=== PATIENT | female | born 1990 | race Caucasian/White ===

== ENCOUNTER → 2020-11-19 | Outpatient (REF) | payer OTHER | LOC: M SFHCWAGY 13:23 | PROVIDERS: ATTEND Nurse Practitioner Women's Health | DX: Z12.4 Encounter for screening for malignant neoplasm of cervix (principal); Z01.419 Encounter for gynecological examination (general) (routine) without abnormal findings ==

== ENCOUNTER 2021-09-07 16:14 | Emergency (ER) | payer OTHER ==
[~2021-09-07] VITALS: Ht 177.8 cm; Wt 86.6 kg
[2021-09-07] MEDS ORDERED: NS 1,000 ML IV ONE (17:20)
[2021-09-07] MEDS ORDERED: ONDANSETRON 4MG/2ML VIAL IV ONE (17:20)
[2021-09-07 18:18] LABS: BASO % 0.5 % (0.0-1.0); EOS # 0.1 10^3/uL (0.0-0.5); EOS % 1.2 % (0.0-3.0); HEMATOCRIT 39.2 % (36.0-47.0); LYMPH % 26.7 % (24.0-44.0); MEAN CORPUSCULAR HEMOGLOBIN 30.3 pg (27.0-33.0); MEAN CORPUSCULAR HGB CONC 33.2 g/dl (32.0-36.5); MEAN CORPUSCULAR VOLUME 91.4 fl (80.0-96.0); MONO # 0.9 10^3/uL (0.0-0.8); MONO % 11.9 % (2.0-8.0); NEUTROPHILS # 4.3 10^3/uL (1.5-8.5); NEUTROPHILS % 59.4 % (36.0-66.0); PLATELET COUNT, AUTOMATED 263 10^3/uL (150-450); RED BLOOD COUNT 4.29 10^6/uL (4.00-5.40); WHITE BLOOD COUNT 7.3 10^3/uL (4.0-10.0)
[2021-09-07 18:39] LABS: ALBUMIN 3.5 GM/DL (3.2-5.2); ALT/SGPT 16 U/L (12-78); BILIRUBIN,DIRECT 0.1 MG/DL (0.0-0.2); BILIRUBIN,TOTAL 0.2 MG/DL (0.2-1.0); BLOOD UREA NITROGEN 10 MG/DL (7-18); C REACTIVE PROTEIN QUANTITATIV 3.05 MG/DL (0.00-0.30); CALCIUM LEVEL 8.6 MG/DL (8.5-10.1); CARBON DIOXIDE LEVEL 29 MEQ/L (21-32); CHLORIDE LEVEL 103 MEQ/L (98-107); CREATININE FOR GFR 0.67 MG/DL (0.55-1.30); GLOMERULAR FILTRATION RATE > 60.0 (>60); GLUCOSE, FASTING 93 MG/DL (70-100); LIPASE 87 U/L (73-393); POTASSIUM SERUM 3.5 MEQ/L (3.5-5.1); SODIUM LEVEL 137 MEQ/L (136-145); TOTAL PROTEIN 7.5 GM/DL (6.4-8.2)
[2021-09-07 18:40] LABS: ERYTHROCYTE SEDIMENTATION RATE 29 mm/hr (0-20)
[2021-09-07] MEDS ORDERED: ISOVUE-370 76% 100ML VIAL As Ordered ONE (18:50)
[2021-09-07 19:17] VITALS: BP 116/68
== END 2021-09-07 20:00 | disposition home or self-care (01) ==
LOC: M ED 16:14
DX: A02.0 Salmonella enteritis (principal); Z88.5 Allergy status to narcotic agent
CPT/HCPCS: 74177; 80048; 80076; 81001; 83605; 83690; 84702; 85025; 85652; 86140; 87086; 87507; 96361; 96374; 99284; J2405; Q9967

== ENCOUNTER → 2021-11-01 | Outpatient (REF) | payer OTHER | LOC: M LAB REF 19:44 | PROVIDERS: ATTEND Internal Medicine | DX: J02.9 Acute pharyngitis, unspecified (principal) ==

== ENCOUNTER 2023-02-12 14:51 | Emergency (ER) | payer OTHER ==
[~2023-02-12] VITALS: Ht 177.8 cm; Wt 84.1 kg
[2023-02-12 19:14] VITALS: BP 127/74; TEMP 99.2; O2SAT 100
== END 2023-02-12 19:33 | disposition home or self-care (01) ==
LOC: M ED 19:05
DX: S80.02XA Contusion of left knee, initial encounter (principal); S06.0X0A Concussion without loss of consciousness, initial encounter; S13.4XXA Sprain of ligaments of cervical spine, initial encounter; V49.40XA Driver injured in collision with unspecified motor vehicles in traffic accident, initial encounter; Y92.410 Unspecified street and highway as the place of occurrence of the external cause; Z88.5 Allergy status to narcotic agent

== ENCOUNTER → 2023-08-18 | Outpatient (CLI) | payer OTHER | LOC: M SOG 07:53 | PROVIDERS: ATTEND Physician Assistant | DX: M25.562 Pain in left knee (principal) ==

== ENCOUNTER → 2023-08-23 | Outpatient (CLI) | payer OTHER | LOC: M PLAIMG 07:11 | PROVIDERS: ATTEND Physician Assistant | DX: M25.562 Pain in left knee (principal) ==